=== PATIENT | female | born 1955 | race Caucasian/White ===

== ENCOUNTER 2019-12-13 09:19 | Outpatient (CLI) | payer MEDICARE, BC ==
--- NOTE | 2019-12-13 10:03 | RAD ---
EXAM: 4 views of the lumbosacral spine HISTORY: Low back pain and multiple falls COMPARISON: None FINDINGS: There is grade 1 anterolisthesis of L4 and L5. There is mild narrowing of the intervertebra l discs and small to moderate osteophytes are seen throughout the lumbar spine. Posterior facet arthrosis is seen in the lower lumbosacral spine. Alignment is unchanged with flexion and extension. The sacroiliac joints are unremarkable. IMPRESSION: Degenerative changes and spondylolisthesis of L4 on L5 with unchanged alignment with bend ing
--- NOTE | 2019-12-13 11:25 | MRI ---
MRI LUMBAR SPINE NONCONTRAST: HISTORY: Lumbar radiculopathy. Low back pain with difficulty walking long distances and standing. Symptoms x6 months. Patient fell 6 months ago. COMPARISON: None. FINDINGS: Appropriate T1 marrow signal intensity of the lumbar vertebrae. Lumbar spine vertebral body height is maintained. There is no fracture. No significant STIR hyperintensity to suggest vertebral body edema or ligamentous injury. Spondylolisthesis: 7.4 mm of anterolisthesis of L4 for upon L5. Appropriate signal intensity of the visualized paraspinal muscles and solid organs. Conus medullaris terminates at the T12-L1 disc space. T12-L1:Adequate disc hydration. No significant central canal stenosis or significant neural foraminal narrowing. L1-L2:Adequate disc hydration. No significant central canal stenosis or significant neural foraminal narrowing. L2-L3:Disc desiccation without significant loss of disc space height. Broad-based disc bulge, ligamen t flavum thickening and facet hypertrophy result in mild central canal stenosis. Mild to moderate bilateral neural foraminal narrowing. L3-L4:Disc desiccation without severe loss of disc space height. No significant posterior disc abdome n body. There is ligamentum flavum thickening and facet hypertrophy. No significant central canal stenosis. Moderate right and [id number] left neural foraminal narrowing. L4-L5:Desiccation with mild loss of disc space height. Broad-based disc bulge, ligament flavum thicke crescencio and facet hypertrophy result in moderate to severe central canal stenosis. There is moderate bilateral facet hypertrophy. Mild to moderate bilateral foraminal narrowing. L5-S1:Adequate disc hydration. No significant posterior disc abdomen body. No significant stenosis of the thecal sac due to disc material. Narrowing of the thecal sac due to epidural lipomatosis is noted. Mild bilateral facet hypertrophy. Mild right and left neural foraminal narrowing. IMPRESSION: 1. Moderate to severe central canal stenosis at L4-L5. 2. Additional level of degenerative changes as described above. 3. Grade 1 anterolisthesis of L4 upon L5 without associated spondylolysis. There is moderate bilatera l facet hypertrophy at L4-L5. Transcribed Date/Time: 12/13/2019 11:33 AM
== END 2019-12-13 09:20 | disposition home or self-care (01) ==
LOC: BICMRI 09:19
PROVIDERS: ATTEND Anesthesiology Pain Medicine
DX: M47.26 Other spondylosis with radiculopathy, lumbar region (principal); M43.16 Spondylolisthesis, lumbar region; M48.061 Spinal stenosis, lumbar region without neurogenic claudication
CPT/HCPCS: 72120; 72148

== ENCOUNTER 2020-02-06 10:25 | Outpatient (CLI) | payer MEDICARE, BC ==
--- NOTE | 2020-02-06 11:07 | CT ---
CT LUMBAR SPINE WITHOUT CONTRAST: COMPARISON: None. CORRELATION: MRI lumbar spine 12/13/2019. HISTORY: Lumbar radiculopathy. FINDINGS: Lumbar spine vertebral body height is maintained. No fracture. Visualized solid organs, paraspinal muscles have appropriate attenuation. Atherosclerosis of a nonaneurysmal aorta. Presacral fat is preserved. Visualized bony pelvis and sacral alae are preserved and intact. Vacuum joint phenomenon in bilateral sacroiliac joints. Spondylolisthesis: 6.4 mm of anterolisthesis of L4 upon L5. No associated spondylolysis. Limited evaluation the contents of the central spinal canal and neural foramina due to technique. T10-T11 and T11-T12: No significant central canal stenosis or significant neural foraminal narrowing. T12-L1: No significant central canal stenosis or significant neural foraminal narrowing. L1-L2: No significant central canal stenosis or significant neural foraminal narrowing. L2-L3: Mild loss of disc space height. Broad-based disc bulge, ligament flavum thickening and facet h ypertrophy result in mild central canal stenosis. Moderate right and left neural foraminal narrowing. L3-L4: Mild loss of disc space height. Broad-based disc bulge, ligament flavum thickening and facet h ypertrophy appear to cause mild stenosis of the thecal sac. Moderate to severe right and moderate left neural foraminal narrowing. L4-L5: Broad-based disc bulge, ligament flavum thickening and facet hypertrophy result in moderate to severe central canal stenosis. Moderate to severe bilateral foraminal narrowing. Vacuum joint phenomenon in both facet joints. There is facet hypertrophy. L5-S1: No significant central canal stenosis. Mild bilateral neural foraminal narrowing. IMPRESSION: 1. Grade 1 anterolisthesis of L4 upon L5. Associated bilateral facet hypertrophy and vacuum joint phe nomenon. No associated spondylolysis. 2. Moderate to severe central canal stenosis at L4-L5. 3. Varying neural foraminal stenosis as detailed above. Transcribed Date/Time: 02/06/2020 11:23 AM
== END 2020-02-06 10:26 | disposition home or self-care (01) ==
LOC: TBSIIMAG 10:25
PROVIDERS: ATTEND Neurological Surgery
DX: M54.16 Radiculopathy, lumbar region (principal); M43.16 Spondylolisthesis, lumbar region; M48.061 Spinal stenosis, lumbar region without neurogenic claudication; M48.07 Spinal stenosis, lumbosacral region
CPT/HCPCS: 72131

== ENCOUNTER 2020-05-07 06:33 | Outpatient (CLI) | payer MEDICARE, BC, OTHER ==
[2020-05-07 15:59] LABS: Hemoglobin 14.8 g/dL (12.0-16.0); Mean Corpuscular HGB CONC 33.6 g/dL (32.0-36.0); Mean Corpuscular Hemoglobin 30.4 pg (27.0-31.0); Mean Corpuscular Volume 90.7 fL (78.0-98.0); Mean Platelet Volume 8.6 fL (7.4-10.4); Platelet Count 182 thou/uL (130-400); RBC Distribution Width 12.7 % (11.5-14.5); Red Blood Cell (RBC) Count 4.84 mill/uL (4.20-5.40); White Blood Cell (WBC) Count 6.5 thou/uL (4.8-10.8)
[2020-05-07 16:10] LABS: Anion Gap 11 mmol/L (10-20); BUN (Urea Nitrogen) 7 mg/dL (9.8-20.1); Calc. Creatinine Clearance 0 mL/min (70-130); Calcium 10.2 mg/dL (7.8-10.44); Carbon Dioxide 25 mmol/L (23-31); Chloride 107 mmol/L (98-107); Estimated GFR-MDRD 78; Glucose 177 mg/dL (80-115); Sodium 139 mmol/L (136-145)
[2020-05-08 18:04] LABS: SARS-CoV-2 MS2 Positive; SARS-CoV-2 N Gene Negative; SARS-CoV-2 S Gene Negative; SARS-CoV-2 orf1ab Negative
== END 2020-05-07 06:34 | disposition home or self-care (01) ==
LOC: LABBT 06:33
PROVIDERS: ATTEND Neurological Surgery
DX: Z01.812 Encounter for preprocedural laboratory examination (principal); Z11.59 Encounter for screening for other viral diseases; M43.16 Spondylolisthesis, lumbar region; M54.16 Radiculopathy, lumbar region
CPT/HCPCS: 80048; 85027; U0003; 87635

== ENCOUNTER 2020-05-10 05:39 | Day surgery (SDC) | payer MEDICARE, BC ==
[2020-05-06 12:18] VITALS: BMI 41.5
--- NOTE | 2020-05-09 16:46 | HP ---
HISTORY OF PRESENT ILLNESS: Ms. Mtz is a pleasant 64-year-old woman, here to discuss several years worth of worsening lower back pain, bilateral radicular pains, right greater than left, in L5 pattern as well as progressive neurogenic claudication. She has been seeing Dr. Atkins, who has performed SI joint injections without relief. MRI was performed and was then subsequently referred to us for further evaluation. Her pain is worsened with standing or walking and improved upon sitting down. MRI from [place] reveals severe central canal stenosis at L4-L5 secondary to grade 1-2 spondylolisthesis imposing lateral recess stenosis. She has a rather well-appearing spine otherwise. PHYSICAL EXAMINATION: She is alert and oriented x3. Gait is slowed and antalgic. Lower extremity motor exam is normal. PAST MEDICAL HISTORY: Significant for diabetes, gastroesophageal reflux disease, hypertension, coronary arterial disease. CURRENT MEDICATIONS: 1. Nitrostat. 2. Rosuvastatin. 3. Losartan. 4. Prasugrel. 5. Toprol. 6. Furosemide. 7. Omeprazole. 8. Metformin. PAST SURGICAL HISTORY: None listed. ALLERGIES: NO KNOWN DRUG ALLERGIES. ASSESSMENT: Lumbar spinal stenosis with spondylolisthesis and neurogenic claudication. PLAN: Dr. Wright met with the patient, reviewed imaging, advocated for L4-L5 decompression and fusion. He explained to the patient the risks, benefits, and alternatives to the procedure. The patient expressed understanding and would like to move forward with surgery as discussed. I do believe that she is mentally competent and capable of making medical decisions for herself. We will move forward with surgery as planned. Job ID: [id number]
[2020-05-10] MEDS ORDERED: Fentanyl 100 MCG/2 ML VIAL ONE ×3 (06:01→09:40)
[2020-05-10] MEDS ORDERED: EPINEPHrine 1 MG/ML AMP ONE (06:10)
[2020-05-10] MEDS ORDERED: Thrombin 5000 UNITS/5 ML VIAL ONE (06:10)
[2020-05-10] MEDS ORDERED: Bupivacaine PF 0.5% 30 ML VIAL ONE (06:10)
[2020-05-10] MEDS ORDERED: PROPOFOL 200 MG/20 ML VIAL ONE (10:24)
[2020-05-10] MEDS ORDERED: Ketorolac Tromethamine 30 MG/ML VIAL ONE (10:24)
[2020-05-10] MEDS ORDERED: Glycopyrrolate 0.2 MG/ML 5 ML SYRINGE ONE (10:24)
[2020-05-10] MEDS ORDERED: Ondansetron PF 4 MG/2 ML Vial ONE (10:24)
[2020-05-10] MEDS ORDERED: EPHEDRINE 25 MG/5 ML SYRINGE ONE (10:24)
[2020-05-10] MEDS ORDERED: Rocuronium Bromide 10 MG/ML (10ML VIAL) ONE (10:24)
[2020-05-10] MEDS ORDERED: Lidocaine 1% PF 5 ML VIAL ONE (10:24)
[2020-05-10] MEDS ORDERED: Dexamethasone 20 MG/5 ML VIAL ONE (10:24)
--- NOTE | 2020-05-10 10:56 | OP ---
DATE OF PROCEDURE: 05/10/2020 GOVERNMENT AUDITOR: Fred Rebollar PA-C INDICATION: Pain. DIAGNOSIS: Lumbar spondylolisthesis with back pain and radiculopathy. PROCEDURES PERFORMED: L4-L5 bilateral facetectomies, bilateral posterolateral instrumented fusion, placement of allograft, and placement of autograft. ANESTHESIA: General. DESCRIPTION OF PROCEDURE: The patient was brought into the operating room and placed under general anesthesia. She was flipped from the supine to prone position on the operating room table. A linear incision was planned over the L4-L5 segment. After prepping and draping and after an appropriate preoperative pause, the incision was created. The soft tissues were swept away from midline. Self-retaining retractors were placed in the wound for optimal exposure. After confirming the appropriate levels with C-arm fluoroscopy, hemilaminectomies and facetectomies were performed at the L4-L5 segment. Pedicle screws were placed at L4 and L5 bilaterally with the aid of C-arm fluoroscopy. An intraoperative 3D CT scan was performed to confirm placement of hardware. Rods were then placed across the screw heads and final tightened with set screws. Allograft and autograft material were then placed within the lateral confines of the instrumentation construct. The wound was irrigated. Hemostasis was maintained throughout. The wound was then closed in anatomic layers and a pressure dressing was applied. There were no known procedural complications. Job ID: [id number]
[2020-05-10] MEDS ORDERED: Promethazine HCl 25 MG/ML VIAL ONE (11:18)
[2020-05-10] MEDS ORDERED: Sodium Chloride 0.9% 10 ML ONE (11:18)
== END 2020-05-10 11:50 | disposition home or self-care (01) ==
LOC: SDC 05:39
PROVIDERS: ATTEND Neurological Surgery
PROC: 0SG00J1 Fusion of Lumbar Vertebral Joint with Synthetic Substitute, Posterior Approach, Posterior Column, Open Approach (ICD-10-PCS; principal; 2020-05-10)
DX: M43.16 Spondylolisthesis, lumbar region (principal); M54.16 Radiculopathy, lumbar region; M48.062 Spinal stenosis, lumbar region with neurogenic claudication; E11.9 Type 2 diabetes mellitus without complications; K21.9 Gastro-esophageal reflux disease without esophagitis; I10 Essential (primary) hypertension; I25.10 Atherosclerotic heart disease of native coronary artery without angina pectoris; Z79.82 Long term (current) use of aspirin; Z79.84 Long term (current) use of oral hypoglycemic drugs; Z79.899 Other long term (current) drug therapy; Z95.1 Presence of aortocoronary bypass graft
CPT/HCPCS: 76000; 93005; 93010; J0171; J0690; J1100; J1885; J2001; J2405; J2550; J2704; J3010; S0020

== ENCOUNTER 2021-01-29 14:50 | Outpatient (CLI) | payer MEDICARE, BC ==
[2021-01-29 15:47] LABS: Bilirubin Neg (Negative); Blood, Urine Negative (Negative); Clarity Clear (Clear); Glucose, Urine (Dipstick) Normal (Negative); Ketone, Urine 5 mg/dL (Negative); Leukocyte 25 (Negative); Nitrite Negative (Negative); Protein, Urine (Dipstick) Negative (Neg-Trace)
[2021-01-29 15:50] LABS: #Basophils 0.1 10x3/uL (0.0-0.2); #Eosinphils 0.2 10x3/uL (0.0-0.5); #Monocytes 0.5 10x3/uL (0.0-1.1); #Neutrophils 5.2 10x3/uL (1.5-8.4); %Basophils 0.9 % (0.0-2.0); %Eosinophils 2.6 % (0.0-6.0); %Lymphocytes 33.9 % (18.0-47.0); %Monocytes 5.4 % (0.0-10.0); %Neutrophils 56.8 % (40.0-75.0); Hemoglobin 13.6 g/dL (12.0-15.5); Mean Corpuscular HGB CONC 31.8 g/dL (32.0-36.0); Mean Corpuscular Hemoglobin 28.8 pg (27.0-33.0); Mean Corpuscular Volume 90.7 fl (81.6-98.3); Mean Platelet Volume 10.2 fl (7.4-10.4); Platelet Count 225 10x3/uL (150-450); RBC Distribution Width 13.4 % (11.5-14.5); Red Blood Cell (RBC) Count 4.72 10x6/uL (3.90-5.03); White Blood Cell (WBC) Count 9.2 10x3/uL (3.5-10.5)
[2021-01-29 16:06] LABS: Anion Gap 13 mmol/L (10-20); BUN (Urea Nitrogen) 8 mg/dL (9.8-20.1); Calc. Creatinine Clearance 0 mL/min (70-130); Calcium 10.3 mg/dL (7.8-10.44); Carbon Dioxide 27 mmol/L (23-31); Chloride 106 mmol/L (98-107); Glucose 142 mg/dL (80-115); Potassium 4.2 mmol/L (3.5-5.1); Sodium 142 mmol/L (136-145)
[2021-01-29 16:10] LABS: Prothrombin Time 10.5 sec (9.5-12.1)
[2021-01-29 16:22] LABS: RBC/HPF 0-3 HPF (0-3)
[2021-01-29 16:23] LABS: Bacteria/HPF Rare-Few HPF (None Seen); Mucous/LPF 1+ LPF (<2+); Oval Fat Bodies/HPF 1+ HPF (None Seen)
[2021-01-30 00:56] LABS: SARS-CoV-2 PCR by NAA Not Detected (NotDetected)
== END 2021-01-29 14:51 | disposition home or self-care (01) ==
LOC: LABBT 14:50
PROVIDERS: ATTEND Orthopaedic Surgery
DX: Z01.818 Encounter for other preprocedural examination (principal); Z20.822 Contact with and (suspected) exposure to COVID-19; M17.11 Unilateral primary osteoarthritis, right knee
CPT/HCPCS: 80048; 81001; 85025; 85610; 87081; U0003; U0005; 87635

== ENCOUNTER 2021-02-03 05:28 | Inpatient (IN) | payer MEDICARE, BC ==
[2021-01-30 13:35] VITALS: BMI 38.0
[2021-02-03] MEDS ORDERED: Midazolam HCl 2 mg/2 ml Vial ONE ×2 (06:12→06:43)
[2021-02-03] MEDS ORDERED: Fentanyl 100 MCG/2 ML VIAL ONE ×3 (06:12→09:24)
[2021-02-03] MEDS ORDERED: Sodium Chloride 0.9% 100 ML ONE (06:40)
[2021-02-03] MEDS ORDERED: Tranexamic Acid 1,000 MG/10 ML VIAL ONE ×2 (06:40→09:38)
[2021-02-03] MEDS ORDERED: Vancomycin 1.5 GRAM/300 ML BAG ONE (06:41)
[2021-02-03] MEDS ORDERED: Lidocaine 1% (PF) 30 ML VIAL ONE (06:43)
[2021-02-03] MEDS ORDERED: Acetaminophen 325 MG TAB PO PRN (07:14)
[2021-02-03] MEDS ORDERED: Fentanyl 100 MCG/2 ML VIAL SLOW IVP PRN (07:14)
[2021-02-03] MEDS ORDERED: Zolpidem Tartrate 5 MG TAB PO PRN ×2 (07:14→08:15)
[2021-02-03] MEDS ORDERED: HYDROcodone/Acetaminophen 10/325 mg Tablet PO PRN ×3 (07:14→08:15)
[2021-02-03] MEDS ORDERED: Promethazine HCl 25 MG/ML VIAL IM PRN ×3 (07:14→09:18)
[2021-02-03] MEDS ORDERED: Ondansetron PF 4 MG/2 ML Vial IVP PRN ×2 (07:14→08:15)
[2021-02-03] MEDS ORDERED: traMADol HCl 50 MG TAB PO PRN ×3 (07:14→08:15)
[2021-02-03] MEDS ORDERED: Tranexamic Acid 1,000 MG in Sodium Chloride 0.9% 100 ML IVPB SCH (07:15)
[2021-02-03] MEDS ORDERED: Vancomycin HCl 1.5 GM in Sodium Chloride 0.9% 250 ML 300 ML IVPB SCH (07:15)
[2021-02-03] MEDS ORDERED: Non-Formulary Item 1 EACH (Omeprazole [Omeprazole] 20 MG Capsule.Dr) PO PRN (07:16)
[2021-02-03] MEDS ORDERED: Fentanyl 100 MCG/2 ML VIAL IV PRN (08:14)
[2021-02-03] MEDS ORDERED: Bupivacaine PF 0.5% 30 ML VIAL ONE (08:15)
[2021-02-03] MEDS ORDERED: Ropivacaine HCl/PF 250 ML in Premix Bag 1 BAG NERVE BLCK SCH (08:15)
[2021-02-03] MEDS ORDERED: Aspirin 325 MG TAB PO SCH (09:00)
[2021-02-03] MEDS ORDERED: Promethazine HCl 25 MG/ML VIAL SLOW IVP PRN (09:18)
[2021-02-03] MEDS ORDERED: Ondansetron HCl/PF 4 MG/2 ML Vial IVP PRN (09:18)
[2021-02-03] MEDS ORDERED: Ketorolac Tromethamine 30 MG/ML VIAL ONE (09:23)
[2021-02-03] MEDS ORDERED: Ondansetron PF 4 MG/2 ML Vial ONE ×2 (10:00→10:52)
[2021-02-03] MEDS: Multivitamin W/ Minerals 1 TAB PO SCH (10:01)
[2021-02-03] MEDS: Senokot S 8.6-50 MG TAB PO SCH ×2 (10:01→20:31)
[2021-02-03] MEDS: Ferrous Gluconate 324 MG TAB PO SCH ×2 (10:01→20:30)
[2021-02-03] MEDS: Aspirin 81 mg Enteric Coated Tablet PO SCH ×2 (10:08→20:31)
[2021-02-03] MEDS ORDERED: Bupivacaine HCl 0.5%/Epinephrine 1:200,000/PF 30 ml Vial ONE (10:52)
[2021-02-03] MEDS ORDERED: Lidocaine 1% PF 5 ML VIAL ONE (10:52)
[2021-02-03] MEDS ORDERED: PROPOFOL 200 MG/20 ML VIAL ONE (10:52)
[2021-02-03] MEDS ORDERED: Ropivacaine 2% HCl/PF (20 MG/10 ML VIAL) ONE (10:52)
[2021-02-03] MEDS ORDERED: Metoclopramide HCl 10 MG/2 ML VIAL ONE (10:52)
[2021-02-03] MEDS ORDERED: Ketorolac Tromethamine 30 MG/ML VIAL IVP SCH ×2 (12:00→14:00)
[2021-02-03] MEDS: metFORMIN 500 MG TAB PO SCH ×2 (12:06→18:09)
[2021-02-03] MEDS: Ketorolac Tromethamine 30 MG/ML VIAL IVP SCH ×2 (13:26→20:26)
[2021-02-03] MEDS: CEFAZOLIN 2 GM in Premix Bag 1 BAG IVPB SCH ×2 (13:27→23:14)
[2021-02-03] MEDS: Sodium Chloride 0.9% 1,000 ML IV SCH ×2 (13:29→18:43)
[2021-02-03] MEDS: Furosemide 20 MG TAB PO SCH (13:29)
[2021-02-03] MEDS: Losartan 25 MG TAB PO SCH (13:30)
[2021-02-03] MEDS ORDERED: Dextrose 50% Abboject 50 ML SYRINGE SLOW IVP PRN (14:02)
[2021-02-03] MEDS ORDERED: HumaLOG 300 UNITS/3 ML VIAL SC PRN ×2 (14:02)
[2021-02-03] MEDS ORDERED: Dextrose 5% in Water 1,000 ML IV PRN (14:02)
[2021-02-03] MEDS ORDERED: Vancomycin 1.5 GRAM/300 ML BAG 1.5 GM in Premix Bag 1 BAG IVPB SCH (19:00)
[2021-02-03] MEDS: Rosuvastatin 10 MG TAB PO SCH (20:30)
[2021-02-04] MEDS: HYDROcodone/Acetaminophen 10/325 mg Tablet PO PRN ×4 (00:49→17:41)
[2021-02-04] MEDS: Ketorolac Tromethamine 30 MG/ML VIAL IVP SCH ×4 (01:06→20:07)
[2021-02-04] MEDS: Sodium Chloride 0.9% 1,000 ML IV SCH ×3 (03:25→23:22)
[2021-02-04 06:11] LABS: #Basophils 0.1 thou/uL (0.0-0.2); #Eosinphils 0.2 thou/uL (0.0-0.7); #Lymphocytes 2.8 thou/uL (1.20-3.40); #Monocytes 0.8 thou/uL (0.11-0.59); #Neutrophils 5.6 thou/uL (1.40-6.50); %Basophils 0.6 % (0.0-1.0); %Eosinophils 1.6 % (0.0-10.0); %Monocytes 8.7 % (0.0-10.0); %Neutrophils 59.2 % (42.0-75.0); Mean Corpuscular HGB CONC 33.1 g/dL (32.0-36.0); Mean Corpuscular Hemoglobin 30.1 pg (27.0-31.0); Mean Platelet Volume 7.8 fL (7.4-10.4); Platelet Count 152 thou/uL (130-400); RBC Distribution Width 12.5 % (11.5-14.5); Red Blood Cell (RBC) Count 3.66 mill/uL (4.20-5.40); White Blood Cell (WBC) Count 9.5 thou/uL (4.8-10.8)
[2021-02-04 06:29] LABS: Anion Gap 14 mmol/L (10-20); BUN (Urea Nitrogen) 10 mg/dL (9.8-20.1); Calc. Creatinine Clearance 144 mL/min (70-130); Calcium 8.7 mg/dL (7.8-10.44); Carbon Dioxide 16 mmol/L (23-31); Chloride 109 mmol/L (98-107); Glucose 134 mg/dL (80-115); Potassium 3.9 mmol/L (3.5-5.1); Sodium 135 mmol/L (136-145)
[2021-02-04] MEDS: Ferrous Gluconate 324 MG TAB PO SCH ×2 (07:37→20:07)
[2021-02-04] MEDS: Senokot S 8.6-50 MG TAB PO SCH ×2 (07:37→20:08)
[2021-02-04] MEDS: Aspirin 81 mg Enteric Coated Tablet PO SCH ×2 (07:37→20:08)
[2021-02-04] MEDS: Multivitamin W/ Minerals 1 TAB PO SCH (07:37)
[2021-02-04] MEDS: Furosemide 20 MG TAB PO SCH (07:37)
[2021-02-04] MEDS: metFORMIN 500 MG TAB PO SCH ×2 (07:37→17:41)
[2021-02-04] MEDS: Losartan 25 MG TAB PO SCH (08:27)
[2021-02-04] MEDS: diphenhydrAMINE 25 MG CAP PO PRN ×2 (09:07→17:43)
[2021-02-04] MEDS: Rosuvastatin 10 MG TAB PO SCH (20:08)
[2021-02-05] MEDS: HYDROcodone/Acetaminophen 10/325 mg Tablet PO PRN ×2 (00:01→13:51)
[2021-02-05] MEDS: diphenhydrAMINE 25 MG CAP PO PRN ×2 (00:02→10:31)
[2021-02-05] MEDS: Ketorolac Tromethamine 30 MG/ML VIAL IVP SCH ×3 (04:01→09:04)
[2021-02-05 05:17] LABS: #Eosinphils 0.1 thou/uL (0.0-0.7); #Lymphocytes 2.2 thou/uL (1.20-3.40); #Monocytes 0.7 thou/uL (0.11-0.59); #Neutrophils 6.5 thou/uL (1.40-6.50); %Basophils 0.4 % (0.0-1.0); %Eosinophils 1.6 % (0.0-10.0); %Lymphocytes 22.8 % (21.0-51.0); %Monocytes 7.1 % (0.0-10.0); %Neutrophils 68.1 % (42.0-75.0); Hemoglobin 10.8 g/dL (12.0-16.0); Mean Corpuscular HGB CONC 32.8 g/dL (32.0-36.0); Mean Corpuscular Hemoglobin 30.1 pg (27.0-31.0); Mean Corpuscular Volume 91.7 fL (78.0-98.0); Mean Platelet Volume 7.9 fL (7.4-10.4); Platelet Count 156 thou/uL (130-400); RBC Distribution Width 12.7 % (11.5-14.5); Red Blood Cell (RBC) Count 3.58 mill/uL (4.20-5.40); White Blood Cell (WBC) Count 9.6 thou/uL (4.8-10.8)
[2021-02-05 05:31] LABS: Anion Gap 12 mmol/L (10-20); BUN (Urea Nitrogen) 10 mg/dL (9.8-20.1); Calc. Creatinine Clearance 130 mL/min (70-130); Calcium 9.4 mg/dL (7.8-10.44); Carbon Dioxide 23 mmol/L (23-31); Chloride 107 mmol/L (98-107); Glucose 184 mg/dL (80-115); Magnesium 1.8 mg/dL (1.6-2.6); Potassium 4.1 mmol/L (3.5-5.1); Sodium 138 mmol/L (136-145)
[2021-02-05] MEDS: metFORMIN 500 MG TAB PO SCH (08:59)
[2021-02-05] MEDS: Senokot S 8.6-50 MG TAB PO SCH (08:59)
[2021-02-05] MEDS: Multivitamin W/ Minerals 1 TAB PO SCH (08:59)
[2021-02-05] MEDS: Aspirin 81 mg Enteric Coated Tablet PO SCH (08:59)
[2021-02-05] MEDS: Losartan 25 MG TAB PO SCH (09:00)
[2021-02-05] MEDS: Furosemide 20 MG TAB PO SCH (09:00)
[2021-02-05] MEDS: Ferrous Gluconate 324 MG TAB PO SCH (09:00)
[2021-02-05] MEDS: Sodium Chloride 0.9% 1,000 ML IV SCH (09:37)
[2021-02-05 11:52] VITALS: BP 121/73; TEMP 97.6
== END 2021-02-05 14:55 | disposition home or self-care (01) | DRG 470 ==
LOC: SDC 05:28 → SURG B 07:14 → SDC 14:48 → SURG B 14:48
PROVIDERS: ADMIT Orthopaedic Surgery; ATTEND Orthopaedic Surgery
PROC: 0SRC0J9 Replacement of Right Knee Joint with Synthetic Substitute, Cemented, Open Approach (ICD-10-PCS; principal; 2021-02-03)
PROC: 8E0YXBZ Computer Assisted Procedure of Lower Extremity (ICD-10-PCS; 2021-02-03)
DX: M17.11 Unilateral primary osteoarthritis, right knee (principal); I10 Essential (primary) hypertension; E78.5 Hyperlipidemia, unspecified; I25.10 Atherosclerotic heart disease of native coronary artery without angina pectoris; E11.9 Type 2 diabetes mellitus without complications; F32.9 Major depressive disorder, single episode, unspecified; Z96.652 Presence of left artificial knee joint; D64.9 Anemia, unspecified; Z87.891 Personal history of nicotine dependence; Z95.1 Presence of aortocoronary bypass graft; Z79.899 Other long term (current) drug therapy; Z79.84 Long term (current) use of oral hypoglycemic drugs; Z79.82 Long term (current) use of aspirin; Z90.49 Acquired absence of other specified parts of digestive tract; Z98.1 Arthrodesis status; Z82.49 Family history of ischemic heart disease and other diseases of the circulatory system; Z82.0 Family history of epilepsy and other diseases of the nervous system
CPT/HCPCS: 36415; 36416; 80048; 83735; 85025; C1713; C1776; J0690; J1815; J1885; J2001; J2250; J2405; J2704; J2765; J2795; J3010; J3370; J3490; Q0163; S0020

== ENCOUNTER 2022-11-09 08:46 | Outpatient (CLI) | payer MEDICARE, BC | END 2022-11-09 08:47 | disposition home or self-care (01) | LOC: BICRAD 08:46 | PROVIDERS: ATTEND Nurse Practitioner Family | DX: M54.50 Low back pain, unspecified (principal); M47.816 Spondylosis without myelopathy or radiculopathy, lumbar region; Z98.890 Other specified postprocedural states | CPT/HCPCS: 72100 ==

== ENCOUNTER 2022-11-17 09:50 | Outpatient (CLI) | payer MEDICARE, BC | END 2022-11-17 09:51 | disposition home or self-care (01) | LOC: MRI 09:50 | PROVIDERS: ATTEND Orthopaedic Surgery | DX: S46.011A Strain of muscle(s) and tendon(s) of the rotator cuff of right shoulder, initial encounter (principal); M67.813 Other specified disorders of tendon, right shoulder; M67.88 Other specified disorders of synovium and tendon, other site ==

== ENCOUNTER 2022-12-09 09:56 | Outpatient (CLI) | payer MEDICARE, BC ==
[2022-12-09 12:02] LABS: #Basophils 0.1 10x3/uL (0.0-0.2); #Eosinphils 0.2 10x3/uL (0.0-0.5); #Monocytes 0.5 10x3/uL (0.0-1.1); #Neutrophils 3.9 10x3/uL (1.5-8.4); %Basophils 0.8 % (0.0-2.0); %Eosinophils 3.1 % (0.0-6.0); %Lymphocytes 33.1 % (18.0-47.0); %Monocytes 7.5 % (0.0-10.0); %Neutrophils 54.9 % (40.0-75.0); Hemoglobin 14.7 g/dL (12.0-15.5); Mean Corpuscular Volume 88.2 fl (81.6-98.3); Mean Platelet Volume 10.3 fl (7.4-10.4); Platelet Count 262 10x3/uL (150-450); RBC Distribution Width 13.8 % (11.5-14.5); White Blood Cell (WBC) Count 7.1 10x3/uL (3.5-10.5)
[2022-12-09 12:20] LABS: Anion Gap 14 mmol/L (10-20); BUN (Urea Nitrogen) 10 mg/dL (9.8-20.1); Calc. Creatinine Clearance 0 mL/min (70-130); Calcium 10.6 mg/dL (7.8-10.44); Carbon Dioxide 22 mmol/L (23-31); Chloride 105 mmol/L (98-107); Estimated GFR 91; Glucose 176 mg/dL (80-115); Potassium 4.5 mmol/L (3.5-5.1); Sodium 136 mmol/L (136-145)
== END 2022-12-09 09:57 | disposition home or self-care (01) ==
LOC: LABBT 09:56
PROVIDERS: ATTEND Orthopaedic Surgery
DX: Z01.818 Encounter for other preprocedural examination (principal)
CPT/HCPCS: 71046; 80048; 85025

== ENCOUNTER 2022-12-11 05:33 | Day surgery (SDC) | payer MEDICARE, BC ==
[2022-12-09 15:45] VITALS: BMI 39.7
[2022-12-11] MEDS ORDERED: Vancomycin (BATCH) 1.5 GRAM/300 ML BAG ONE (06:18)
[2022-12-11] MEDS ORDERED: Phenylephrine 10 MG/ML VIAL ONE (06:35)
[2022-12-11] MEDS ORDERED: Fentanyl 250 MCG/5 ML VIAL ONE (06:35)
[2022-12-11] MEDS ORDERED: Lidocaine 1% (PF) 30 ML VIAL ONE (07:00)
[2022-12-11] MEDS ORDERED: Bupivacaine PF 0.5% 30 ML VIAL ONE (07:00)
[2022-12-11] MEDS ORDERED: Fentanyl 100 MCG/2 ML VIAL ONE ×2 (07:00→10:12)
[2022-12-11] MEDS ORDERED: Midazolam HCl 2 mg/2 ml Vial ONE (07:00)
[2022-12-11] MEDS ORDERED: Ipratropium/Albuterol 3 ML NEB ONE (07:04)
[2022-12-11] MEDS ORDERED: Sodium Chloride 0.9% 100 ML ONE (07:14)
[2022-12-11] MEDS ORDERED: CEFAZOLIN 2 GM VIAL ONE (07:14)
[2022-12-11] MEDS ORDERED: Ropivacaine 0.2% HCl/PF 20 ML ONE (07:43)
[2022-12-11] MEDS ORDERED: Lidocaine 1% PF 5 ML VIAL ONE (07:58)
[2022-12-11] MEDS ORDERED: Ondansetron PF 4 MG/2 ML Vial ONE (07:58)
[2022-12-11] MEDS ORDERED: Dexamethasone 20 MG/5 ML VIAL ONE (07:58)
[2022-12-11] MEDS ORDERED: NEOSTIGMINE 3 MG/3 ML SYR 3 MG/3 ML SYRINGE ONE (07:58)
[2022-12-11] MEDS ORDERED: Glycopyrrolate 0.2 MG/ML 5 ML SYRINGE ONE (07:58)
[2022-12-11] MEDS ORDERED: PROPOFOL 200 MG/20 ML VIAL ONE (07:58)
[2022-12-11] MEDS ORDERED: Rocuronium Bromide 10 MG/ML (10ML VIAL) ONE (07:58)
[2022-12-11] MEDS ORDERED: traMADol HCl 50 MG TAB PO PRN ×2 (08:00)
[2022-12-11] MEDS ORDERED: Zolpidem Tartrate 5 MG TAB PO PRN (08:00)
[2022-12-11] MEDS ORDERED: Ondansetron PF 4 MG/2 ML Vial IVP PRN (08:00)
[2022-12-11] MEDS ORDERED: Promethazine HCl 25 MG/ML VIAL IM PRN (08:00)
[2022-12-11] MEDS ORDERED: HYDROcodone/Acetaminophen 5/325 mg Tablet PO PRN ×2 (08:00)
[2022-12-11] MEDS ORDERED: Ropivacaine 0.2% 550 ML 550 ML NERVE BLCK SCH (08:00)
[2022-12-11] MEDS ORDERED: HYDROcodone/Acetaminophen 5/325 mg Tablet ONE (11:03)
[2022-12-11] MEDS ORDERED: Ketorolac Tromethamine 30 MG/ML VIAL IVP SCH (12:00)
== END 2022-12-11 12:23 | disposition home or self-care (01) ==
LOC: SDC 05:33
PROVIDERS: ATTEND Orthopaedic Surgery
PROC: 0LQ10ZZ Repair Right Shoulder Tendon, Open Approach (ICD-10-PCS; principal; 2022-12-11)
PROC: 0RNJ0ZZ Release Right Shoulder Joint, Open Approach (ICD-10-PCS; 2022-12-11)
PROC: 0LS30ZZ Reposition Right Upper Arm Tendon, Open Approach (ICD-10-PCS; 2022-12-11)
PROC: 0RHJ04Z Insertion of Internal Fixation Device into Right Shoulder Joint, Open Approach (ICD-10-PCS; 2022-12-11)
DX: S46.211A Strain of muscle, fascia and tendon of other parts of biceps, right arm, initial encounter (principal); S46.011A Strain of muscle(s) and tendon(s) of the rotator cuff of right shoulder, initial encounter; M25.811 Other specified joint disorders, right shoulder; I47.1 Supraventricular tachycardia; I25.10 Atherosclerotic heart disease of native coronary artery without angina pectoris; I10 Essential (primary) hypertension; E78.5 Hyperlipidemia, unspecified; E11.9 Type 2 diabetes mellitus without complications; Z79.82 Long term (current) use of aspirin; Z79.899 Other long term (current) drug therapy; W19.XXXA Unspecified fall, initial encounter
CPT/HCPCS: 23410; 23430; A4306; C1713 ×2; J3370; J1100; J2001; J2250; J2370; J2405; J2704; J2795; J3010; J3490; J7620; S0020

== ENCOUNTER 2024-08-30 10:50 | Outpatient (CLI) | payer MEDICARE, BC | END 2024-08-30 10:51 | disposition home or self-care (01) | LOC: ULT 10:50 | PROVIDERS: ATTEND Nurse Practitioner Family | DX: R10.11 Right upper quadrant pain (principal); K76.0 Fatty (change of) liver, not elsewhere classified; N28.1 Cyst of kidney, acquired; R16.0 Hepatomegaly, not elsewhere classified; Z90.49 Acquired absence of other specified parts of digestive tract | CPT/HCPCS: 76700 ==

== ENCOUNTER 2024-10-19 08:04 | Outpatient (CLI) | payer MEDICARE, BC | END 2024-10-19 08:05 | disposition home or self-care (01) | LOC: ULT 08:04 | PROVIDERS: ATTEND Internal Medicine Nephrology | DX: N18.1 Chronic kidney disease, stage 1 (principal) | CPT/HCPCS: 76770 ==

== ENCOUNTER 2024-10-20 09:05 | Outpatient (CLI) | payer MEDICARE, BC ==
[2024-10-20] MEDS ORDERED: Iopamidol 370 76% 100 ML VIAL ONE (12:13)
== END 2024-10-20 09:06 | disposition home or self-care (01) ==
LOC: CT 09:05
PROVIDERS: ATTEND Physician Assistant Medical
DX: K76.0 Fatty (change of) liver, not elsewhere classified (principal); K52.9 Noninfective gastroenteritis and colitis, unspecified; K86.81 Exocrine pancreatic insufficiency; N28.1 Cyst of kidney, acquired; K83.8 Other specified diseases of biliary tract
CPT/HCPCS: 36415; 74170; 82565